=== PATIENT | female | born 1955 | race Two or more races ===

== ENCOUNTER 2018-09-02 09:39 | Outpatient (CLI) | payer OTHER ==
[~2018-09-02 09:39] MED LIST: ATORVASTATIN CA10 MG; D3-5050000 UNIT; NEURONTIN300 MG; ONGLYZA2.5 MG; TENORMIN50 MG
== END 2018-09-02 09:44 | disposition home or self-care (01) ==
LOC: RAD 09:39
DX: M54.5 Low back pain (principal)

== ENCOUNTER 2020-11-18 17:56 | Emergency (ER) | payer OTHER ==
[~2020-11-18] VITALS: Ht 160 cm; Wt 68.0 kg
[2020-11-18] MEDS ORDERED: FAMOTIDINE40 MG PO (18:10)
[2020-11-18] MEDS ORDERED: FUROSEMIDE20 MG PO (18:10)
[2020-11-18] MEDS ORDERED: ATENOLOL25 MG PO (18:10)
[2020-11-18] MEDS ORDERED: JANUMET XR 1001 EACH PO (18:10)
[2020-11-18] MEDS ORDERED: GABAPENTIN400 MG PO (18:11)
[2020-11-18] MEDS ORDERED: LEVO-T25 MCG PO (18:11)
[2020-11-18] MEDS ORDERED: ATORVASTATIN CA10 MG PO (18:11)
== END 2020-11-18 22:38 | disposition home or self-care (01) ==
LOC: ER 17:56
DX: R42 Dizziness and giddiness (principal); R11.2 Nausea with vomiting, unspecified